=== PATIENT | female | born 2000 | race Caucasian/White ===

== ENCOUNTER 2018-10-26 15:41 | Emergency (ER) | payer MEDICAID ==
[~2018-10-26] VITALS: Ht 172.7 cm; Wt 96.8 kg
[2018-10-26 15:52] VITALS: BP 123/74
--- NOTE | 2018-10-26 17:18 | NUR ---
PT REFUSING URINE TEST, STATES NO CHANCE SHE IS , OK PER PROVIDER. XRAY NOTIFIED
== END 2018-10-26 18:22 | disposition home or self-care (01) ==
LOC: ED 18:16
DX: R06.00 Dyspnea, unspecified (principal); R21 Rash and other nonspecific skin eruption; R20.0 Anesthesia of skin; F17.210 Nicotine dependence, cigarettes, uncomplicated
CPT/HCPCS: 71046; 72050; 99283

== ENCOUNTER 2018-12-24 01:41 | Emergency (ER) | payer SELFPAY ==
[~2018-12-24] VITALS: Ht 175.3 cm; Wt 113.0 kg
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
--- NOTE | 2018-12-24 02:03 | NUR ---
calling [facility] due to insurance
--- NOTE | 2018-12-24 02:18 | NUR ---
PT WHEELED TO AND PROVIDED URINE SAMPLE. [facility] SENT.
[2018-12-24 02:35] LABS: BASOPHILS # (AUTO) 0.03 x10^3/uL (0-0.3); BASOPHILS % (AUTO) 0 % (0-1); EOSINOPHILS # (AUTO) 0.29 x10^3/uL (0-0.8); EOSINOPHILS % (AUTO) 4 % (1-7); LYMPHOCYTES # (AUTO) 2.09 x10^3/uL (1-6.1); LYMPHOCYTES % (AUTO) 30 % (22-44); MD NO; MEAN CORPUSCULAR HEMOGLOBIN 30.3 pg (27.0-34.8); MEAN CORPUSCULAR HGB CONC 33.5 g/dL (32.4-35.8); MEAN CORPUSCULAR VOLUME 90.6 fL (80-100); MEAN PLATELET VOLUME 7.8 fL (7.4-10.4); MONOCYTES # (AUTO) 0.55 x10^3/uL (0-1.4); MONOCYTES % (AUTO) 8 % (2-9); NEUTROPHILS # (AUTO) 4.04 x10^3/uL (1.8-8.0); NEUTROPHILS % (AUTO) 58 % (42-75); PLATELET COUNT 267 x10^3/uL (130-400); RED BLOOD COUNT 4.19 x10^6/uL (3.82-5.3); RED CELL DISTRIBUTION WIDTH 12.9 % (9.6-15.2)
[2018-12-24 02:39] LABS: AMPHETAMINE SCREEN, URINE Negative (Negative); BARBITURATE SCREEN, URINE Negative (Negative); BENZODIAZEPINE SCREEN, URINE Negative (Negative); CANNABINOID SCREEN, URINE Negative (Negative); COCAINE SCREEN, URINE Negative (Negative); METHADONE SCREEN, URINE Negative (Negative); OPIATE SCREEN, URINE Negative (Negative)
[2018-12-24 02:42] LABS: ALANINE AMINOTRANSFERASE 38 U/L (12-78); ALBUMIN 3.8 g/dL (3.4-5.0); ANION GAP 6 mmol/L (5-15); CALCIUM 8.7 mg/dL (8.5-10.1); CHLORIDE 108 mmol/L (98-107); CREATININE 0.68 mg/dL (0.55-1.02)
[2018-12-24 02:43] LABS: SALICYLATE LEVEL < 1.7 mg/dL (2.8-20.0)
[2018-12-24 02:47] LABS: ALKALINE PHOSPHATASE 69 U/L (45-117); BILIRUBIN,TOTAL < 0.1 mg/dL (0.2-1.0); TOTAL PROTEIN 7.9 g/dL (6.4-8.2)
[2018-12-24 02:48] LABS: ACETAMINOPHEN < 2 mcg/mL (10-30)
--- NOTE | 2018-12-24 02:54 | NUR ---
[facility](RYAN) CALLED AND STATED "PT DOESN'T HAVE INSURANCE NOW."
--- NOTE | 2018-12-24 04:15 | NUR ---
pt sleeping in [place]. resps even and unlabored. room remains secure.
--- NOTE | 2018-12-24 05:14 | NUR ---
pt sleeping gurney still. resps even and unlabored. telepsych at bedside. room remains secure.
--- NOTE | 2018-12-24 05:40 | NUR ---
pt wheeled to br. pt used her phone to text her work place. taxi driver supervisor notified. her phone put into belongings again and put it in locker now.
[2018-12-24 05:46] VITALS: BP 114/77
== END 2018-12-24 06:54 | disposition home or self-care (01) ==
LOC: ED 02:12
DX: F32.0 Major depressive disorder, single episode, mild (principal); F17.200 Nicotine dependence, unspecified, uncomplicated
CPT/HCPCS: 36415; 80053; 80307; 84703; 85025; 99284

== ENCOUNTER 2020-08-14 03:35 | Emergency (ER) | payer MEDICAID ==
[~2020-08-14] VITALS: Ht 180.3 cm; Wt 103.9 kg
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
--- NOTE | 2020-08-14 04:12 | NUR ---
erp at bedside
--- NOTE | 2020-08-14 04:25 | NUR ---
PT AMBULATORY WITH STEADY GAIT TO BATHROOM TO PROVIDE URINE SAMPLE. SAMPLE SENT TO LAB, PT RETURNED TO ROOM, NAD, VSS. NO ADDITIONAL NEEDS AT THIS TIME. CALL LIGHT IN REACH.
[2020-08-14 04:42] LABS: MICROSCOPIC AUTO
[2020-08-14 04:48] LABS: BASOPHILS % (AUTO) 0 % (0-1); EOSINOPHILS % (AUTO) 2 % (1-7); LYMPHOCYTES % (AUTO) 39 % (22-44); MEAN CORPUSCULAR HEMOGLOBIN 30.5 pg (27.0-34.8); MEAN CORPUSCULAR HGB CONC 34.5 g/dL (32.4-35.8); MONOCYTES % (AUTO) 13 % (2-9); NEUTROPHILS % (AUTO) 46 % (42-75); PLATELET COUNT 227 x10^3/uL (130-400); RED BLOOD COUNT 4.52 x10^6/uL (3.82-5.3)
[2020-08-14 04:52] LABS: ALANINE AMINOTRANSFERASE 33 U/L (12-78); ALBUMIN 3.9 g/dL (3.4-5.0); ANION GAP 5 mmol/L (5-15); CALCIUM 9.3 mg/dL (8.5-10.1); CHLORIDE 106 mmol/L (98-107); CREATININE 0.65 mg/dL (0.55-1.02)
[2020-08-14 04:55] LABS: MD NO
[2020-08-14 04:57] LABS: ALKALINE PHOSPHATASE 64 U/L (45-117); BILIRUBIN,TOTAL 0.4 mg/dL (0.2-1.0); TOTAL PROTEIN 7.9 g/dL (6.4-8.2)
--- NOTE | 2020-08-14 05:02 | NUR ---
US AT BEDSIDE
--- NOTE | 2020-08-14 05:10 | NUR ---
US REMAINS AT BEDSIDE. PT SITTING SUPINE, NAD, VSS. PT DENIES ANY NEEDS AT THIS TIME. CALL LIGHT AND PERSONAL BELONGINGS WITHIN REACH.
[2020-08-14 06:12] VITALS: BP 112/75
--- NOTE | 2020-08-14 06:12 | NUR ---
Patient given discharge instructions and they have confirmed that they understand the instructions. Patient ambulatory with steady gait.
== END 2020-08-14 06:21 | disposition home or self-care (01) ==
LOC: ED 05:35
DX: K59.00 Constipation, unspecified (principal); R10.31 Right lower quadrant pain; R10.13 Epigastric pain; R20.2 Paresthesia of skin; R11.0 Nausea
CPT/HCPCS: 36415; 76700; 80053; 81001; 83690; 84703; 85025; 87086; 99284

== ENCOUNTER 2020-09-09 20:03 | Emergency (ER) | payer MEDICAID ==
[~2020-09-09] VITALS: Ht 180.3 cm; Wt 92.6 kg
[2020-09-09 20:05] VITALS: BP 129/79
--- NOTE | 2020-09-09 21:41 | NUR ---
PT AMBULATED TO ROOM FROM LOBBY AT THIS TIME.
[2020-09-09] MEDS ORDERED: KETOROLAC 30 MG/1 ML ONE (22:14)
[2020-09-09] MEDS ORDERED: ONDANSETRON ODT 4 MG ONE (22:14)
[2020-09-09 22:20] LABS: BASOPHILS % (AUTO) 1 % (0-1); EOSINOPHILS % (AUTO) 3 % (1-7); LYMPHOCYTES % (AUTO) 39 % (22-44); MEAN CORPUSCULAR HEMOGLOBIN 30.8 pg (27.0-34.8); MEAN CORPUSCULAR HGB CONC 34.9 g/dL (32.4-35.8); MEAN PLATELET VOLUME 8.1 fL (7.4-10.4); MONOCYTES % (AUTO) 8 % (2-9); NEUTROPHILS % (AUTO) 49 % (42-75); PLATELET COUNT 241 x10^3/uL (130-400); RED BLOOD COUNT 4.54 x10^6/uL (3.82-5.3); RED CELL DISTRIBUTION WIDTH 13.1 % (9.6-15.2)
[2020-09-09 22:23] LABS: MD NO
[2020-09-09 22:30] LABS: ALANINE AMINOTRANSFERASE 33 U/L (12-78); ALBUMIN 3.8 g/dL (3.4-5.0); ANION GAP 6 mmol/L (5-15); CALCIUM 9.2 mg/dL (8.5-10.1); CHLORIDE 108 mmol/L (98-107)
[2020-09-09] MEDS ORDERED: ONDANSETRON ODT 4 MG PO ONE (22:30)
[2020-09-09] MEDS ORDERED: KETOROLAC 30 MG/1 ML IM ONE (22:30)
[2020-09-09 22:34] LABS: ALKALINE PHOSPHATASE 84 U/L (45-117); BILIRUBIN,TOTAL 0.3 mg/dL (0.2-1.0); TOTAL PROTEIN 7.5 g/dL (6.4-8.2)
--- NOTE | 2020-09-09 23:22 | NUR ---
Patient/Caregiver given discharge instructions and they have confirmed that they understand the instructions. Patient ambulatory with steady gait. pt does not want d/c vitals done at this time.
== END 2020-09-09 23:23 | disposition home or self-care (01) ==
LOC: ED 21:43
DX: R10.13 Epigastric pain (principal); R42 Dizziness and giddiness; R11.2 Nausea with vomiting, unspecified; R10.9 Unspecified abdominal pain; G40.909 Epilepsy, unspecified, not intractable, without status epilepticus; F17.200 Nicotine dependence, unspecified, uncomplicated; Z90.49 Acquired absence of other specified parts of digestive tract
CPT/HCPCS: 36415; 80053; 83690; 84703; 85025; 96372; 99283; J1885; Q0162

== ENCOUNTER 2020-09-15 08:31 | Emergency (ER) | payer MEDICAID ==
[~2020-09-15] VITALS: Ht 180.3 cm; Wt 102.8 kg
[2020-09-15 08:38] VITALS: BP 113/73
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
[2020-09-15] MEDS ORDERED: KETOROLAC 30 MG/1 ML IM ONE (09:30)
[2020-09-15] MEDS ORDERED: METHOCARBAMOL 750 MG TABLET PO ONE (09:30)
[2020-09-15] MEDS ORDERED: METHOCARBAMOL 750 MG TABLET ONE (09:31)
[2020-09-15] MEDS ORDERED: KETOROLAC 30 MG/1 ML ONE (09:31)
--- NOTE | 2020-09-15 09:45 | NUR ---
medicated per emar
--- NOTE | 2020-09-15 10:14 | NUR ---
knee immobilizer and crutches supplied, applied and patient road tested with above. no safety concerns noted Pain improved to 10/08 Reviewed f/u plan, medication plan, etc with successful teach back
== END 2020-09-15 10:20 | disposition home or self-care (01) ==
LOC: ED 10:14
DX: S70.01XA Contusion of right hip, initial encounter (principal); S80.01XA Contusion of right knee, initial encounter; F17.290 Nicotine dependence, other tobacco product, uncomplicated; V47.0XXA Car driver injured in collision with fixed or stationary object in nontraffic accident, initial encounter; Y93.89 Activity, other specified; Y92.488 Other paved roadways as the place of occurrence of the external cause; Y99.8 Other external cause status
CPT/HCPCS: 29505; 73502; 73564; 99284; J1885

== ENCOUNTER 2020-10-23 16:10 | Emergency (ER) | payer MEDICAID ==
[~2020-10-23] VITALS: Ht 180.3 cm; Wt 104.0 kg
[2020-10-23 16:16] VITALS: BP 126/76
== END 2020-10-23 20:50 | disposition home or self-care (01) ==
LOC: ED 19:13
DX: S83.91XA Sprain of unspecified site of right knee, initial encounter (principal); Z90.49 Acquired absence of other specified parts of digestive tract; X58.XXXA Exposure to other specified factors, initial encounter; Y93.89 Activity, other specified; Y92.89 Other specified places as the place of occurrence of the external cause; Y99.8 Other external cause status
CPT/HCPCS: 29505; 99283

== ENCOUNTER 2020-10-26 22:17 | Emergency (ER) | payer MEDICAID ==
[~2020-10-26] VITALS: Ht 180.3 cm; Wt 113.0 kg
--- NOTE | 2020-10-26 22:51 | NUR ---
PT IN CT
--- NOTE | 2020-10-26 23:16 | NUR ---
PT BACK FROM CT
[2020-10-26] MEDS ORDERED: PROMETHAZINE 25 MG/ML, 1ML IM ONE (23:30)
[2020-10-26] MEDS ORDERED: KETOROLAC 30 MG/1 ML IM ONE (23:30)
[2020-10-26] MEDS ORDERED: KETOROLAC 60 MG/2 ML ONE (23:31)
[2020-10-26] MEDS ORDERED: PROMETHAZINE 25 MG/ML, 1ML ONE (23:31)
[2020-10-27 00:07] VITALS: BP 128/72
--- NOTE | 2020-10-27 00:07 | NUR ---
Patient/Caregiver given discharge instructions and they have confirmed that they understand the instructions. Patient ambulatory with steady gait.
== END 2020-10-27 00:24 | disposition home or self-care (01) ==
LOC: ED 10-27 00:17
DX: S09.90XA Unspecified injury of head, initial encounter (principal); F17.200 Nicotine dependence, unspecified, uncomplicated; I10 Essential (primary) hypertension; G40.909 Epilepsy, unspecified, not intractable, without status epilepticus; Z90.49 Acquired absence of other specified parts of digestive tract; V47.5XXA Car driver injured in collision with fixed or stationary object in traffic accident, initial encounter; Y93.89 Activity, other specified; Y92.89 Other specified places as the place of occurrence of the external cause; Y99.8 Other external cause status
CPT/HCPCS: 70450; 96372; 99284; J1885; J2550

== ENCOUNTER 2021-02-09 21:03 | Emergency (ER) | payer MEDICAID ==
[~2021-02-09] VITALS: Ht 180.3 cm; Wt 99.5 kg
--- NOTE | 2021-02-09 21:07 | NUR ---
die inspector note: Pt to room from wall.
--- NOTE | 2021-02-09 21:30 | NUR ---
pt bib [facility] for syncopal. pt had a panic attack and passed out. pt in gown, resting on gurney, and placed on continuous monitoring.
[2021-02-09] MEDS ORDERED: KETOROLAC 30 MG/1 ML ONE (21:48)
[2021-02-09] MEDS ORDERED: KETOROLAC 30 MG/1 ML IVPush ONE (22:00)
[2021-02-09] MEDS ORDERED: SODIUM CHLORIDE FLUSH 10ML SYR IVF ONE (22:00)
[2021-02-09] MEDS ORDERED: SODIUM CHLORIDE 0.9% 1,000ML IV ONE (22:00)
--- NOTE | 2021-02-09 22:00 | NUR ---
pt resting on gurney, denies needs at this time.
[2021-02-09 22:06] LABS: MICROSCOPIC INDICATED
[2021-02-09 22:09] LABS: BASOPHILS % (AUTO) 0 % (0-1); EOSINOPHILS % (AUTO) 1 % (1-7); LYMPHOCYTES % (AUTO) 19 % (22-44); MEAN CORPUSCULAR HEMOGLOBIN 31.8 pg (27.0-34.8); MEAN CORPUSCULAR HGB CONC 34.6 g/dL (32.4-35.8); MEAN PLATELET VOLUME 8.1 fL (7.4-10.4); MONOCYTES % (AUTO) 9 % (2-9); NEUTROPHILS % (AUTO) 70 % (42-75); PLATELET COUNT 214 x10^3/uL (130-400); RED BLOOD COUNT 4.97 x10^6/uL (3.82-5.3); RED CELL DISTRIBUTION WIDTH 13.3 % (9.6-15.2)
[2021-02-09 22:19] LABS: ALANINE AMINOTRANSFERASE 31 U/L (12-78); ANION GAP 6 mmol/L (5-15); CALCIUM 9.2 mg/dL (8.5-10.1); CHLORIDE 107 mmol/L (98-107)
[2021-02-09 22:22] LABS: ALKALINE PHOSPHATASE 73 U/L (45-117); BILIRUBIN,TOTAL 0.3 mg/dL (0.2-1.0); TOTAL PROTEIN 8.1 g/dL (6.4-8.2)
--- NOTE | 2021-02-09 23:00 | NUR ---
pt resting on [place], complaining of nausea, medication given
[2021-02-09] MEDS ORDERED: ONDANSETRON 2MG/ML, 2ML ONE (23:11)
[2021-02-09] MEDS ORDERED: ONDANSETRON 2MG/ML, 2ML IVPush ONE (23:30)
[2021-02-10] MEDS ORDERED: MAGNESIUM CITRATE 300ML ORAL SOL PO ONE
[2021-02-10] MEDS ORDERED: MAGNESIUM CITRATE 300ML ORAL SOL ONE (00:12)
[2021-02-10 00:17] VITALS: BP 115/72
--- NOTE | 2021-02-10 00:21 | NUR ---
Patient given discharge instructions and they have confirmed that they understand the instructions. Patient ambulatory with steady gait.
== END 2021-02-10 00:26 | disposition home or self-care (01) ==
LOC: ED 21:33
DX: R55 Syncope and collapse (principal); K59.00 Constipation, unspecified; R10.12 Left upper quadrant pain; I10 Essential (primary) hypertension; G40.909 Epilepsy, unspecified, not intractable, without status epilepticus; F17.200 Nicotine dependence, unspecified, uncomplicated; Z90.49 Acquired absence of other specified parts of digestive tract
CPT/HCPCS: 36415; 70450; 74176; 80053; 81001; 85025; 87040; 87086; 96361; 96374; 96375; 99285; J1885; J2405; J7030

== ENCOUNTER 2021-02-18 22:48 | Emergency (ER) | payer MEDICAID ==
[~2021-02-18] VITALS: Ht 180.3 cm; Wt 98.6 kg
--- NOTE | 2021-02-18 23:03 | NUR ---
pt presents to the ed with n/v since last , pt states she's been throwing up blood since . pt also states her right ankle is swollen and hurts, she stepped off the curb in front of her house wrong. pt in gown, resting on gurney, and placed on continuous monitoring.
[2021-02-18] MEDS ORDERED: MAALOX/HYOSCYAMINE/LIDOCAINE 45 ML BTL ONE (23:12)
[2021-02-18] MEDS ORDERED: FAMOTIDINE 20 MG/2 ML ONE (23:12)
[2021-02-18] MEDS ORDERED: ONDANSETRON 2MG/ML, 2ML ONE (23:12)
[2021-02-18 23:24] LABS: BASOPHILS % (AUTO) 0 % (0-1); EOSINOPHILS % (AUTO) 2 % (1-7); LYMPHOCYTES % (AUTO) 31 % (22-44); MEAN CORPUSCULAR HEMOGLOBIN 30.8 pg (27.0-34.8); MEAN CORPUSCULAR HGB CONC 33.6 g/dL (32.4-35.8); MEAN PLATELET VOLUME 8.1 fL (7.4-10.4); MONOCYTES % (AUTO) 8 % (2-9); NEUTROPHILS % (AUTO) 58 % (42-75); PLATELET COUNT 241 x10^3/uL (130-400); RED BLOOD COUNT 5.03 x10^6/uL (3.82-5.3); RED CELL DISTRIBUTION WIDTH 13.1 % (9.6-15.2)
[2021-02-18] MEDS ORDERED: ONDANSETRON 2MG/ML, 2ML IVPush ONE (23:30)
[2021-02-18] MEDS ORDERED: FAMOTIDINE 20 MG/2 ML IVPush ONE (23:30)
[2021-02-18] MEDS ORDERED: SODIUM CHLORIDE 0.9% 1,000ML IVBOLUS ONE (23:30)
[2021-02-18] MEDS ORDERED: MAALOX/HYOSCYAMINE/LIDOCAINE 45 ML BTL PO ONE (23:30)
[2021-02-18 23:33] LABS: ALANINE AMINOTRANSFERASE 33 U/L (12-78); ANION GAP 3 mmol/L (5-15); CALCIUM 9.5 mg/dL (8.5-10.1); CHLORIDE 105 mmol/L (98-107); CREATININE 0.81 mg/dL (0.55-1.02)
[2021-02-18 23:38] LABS: ALKALINE PHOSPHATASE 86 U/L (45-117); BILIRUBIN,TOTAL 0.3 mg/dL (0.2-1.0); TOTAL PROTEIN 8.3 g/dL (6.4-8.2)
[2021-02-18 23:52] LABS: MICROSCOPIC INDICATED
--- NOTE | 2021-02-19 | NUR ---
pt resting on gurney, denies needs at this time.
[2021-02-19 01:00] VITALS: BP 118/73
--- NOTE | 2021-02-19 01:35 | NUR ---
Patient given discharge instructions and they have confirmed that they understand the instructions. Patient ambulatory with steady gait.
== END 2021-02-19 01:38 | disposition home or self-care (01) ==
LOC: ED 23:18
DX: S93.492A Sprain of other ligament of left ankle, initial encounter (principal); K29.00 Acute gastritis without bleeding; R10.12 Left upper quadrant pain; R11.2 Nausea with vomiting, unspecified; F17.200 Nicotine dependence, unspecified, uncomplicated; X58.XXXA Exposure to other specified factors, initial encounter; Y93.89 Activity, other specified; Y92.89 Other specified places as the place of occurrence of the external cause; Y99.8 Other external cause status
CPT/HCPCS: 36415; 73610; 80053; 81001; 83690; 84703; 85025; 87086; 96361; 96374; 96375; 99284; J2405; J7030